=== PATIENT | female | born 1975 | race Caucasian/White ===

== ENCOUNTER 2021-01-23 12:35 | Emergency (ER) | payer BC | END 2021-01-23 15:39 | disposition home or self-care (01) | LOC: ER1 12:35 | DX: S52.121A Displaced fracture of head of right radius, initial encounter for closed fracture (principal); W19.XXXA Unspecified fall, initial encounter | CPT/HCPCS: 73080; 73110; 99283 ==

== ENCOUNTER → 2021-08-18 | Outpatient (CLI) | payer BC | LOC: US 14:40 | DX: M79.605 Pain in left leg (principal) | CPT/HCPCS: 93971 ==